=== PATIENT | male | born 1955 | race Caucasian/White ===

== ENCOUNTER 2025-02-02 08:34 | Day surgery (SDC) | payer OTHER, BC ==
[2025-01-28 14:48] VITALS: BMI 21.9
[2025-02-02] MEDS ORDERED: ACETAMINOPHEN 325 MG TABLET (FP) PO PRN (09:04)
[2025-02-02 09:08] VITALS: RESP 18
[2025-02-02] MEDS ORDERED: OFLOXACIN 0.3% OPHTHALMIC SOLUTION 5 ML BOTTLE ONE (09:11)
[2025-02-02] MEDS ORDERED: PHENYLEPHRINE 2.5% OPTHALMIC DROP 2ML BOTTLE ONE (09:12)
[2025-02-02] MEDS ORDERED: KETOROLAC TROMETHAMINE 0.5% EYE DROP 1 DROP DROPS ONE (09:12)
[2025-02-02] MEDS ORDERED: CYCLOPENTOLATE HCL 1% OPHTH SOLN 2 ML BOTTLE ONE (09:12)
[2025-02-02] MEDS ORDERED: TROPICAMIDE 1% 3 ML EYE DROPS ONE (09:12)
[2025-02-02] MEDS: PHENYLEPHRINE 2.5% OPHTH SOLN 15 ML BOTTLE OS SCH (09:20)
[2025-02-02] MEDS: OFLOXACIN 0.3% OPHTHALMIC SOLUTION 5 ML BOTTLE OS SCH (09:20)
[2025-02-02] MEDS: CYCLOPENTOLATE HCL 1% OPHTH SOLN 2 ML BOTTLE OS SCH (09:20)
[2025-02-02] MEDS: KETOROLAC TROMETHAMINE 0.5% EYE DROP 1 DROP DROPS OS SCH (09:20)
[2025-02-02] MEDS: TROPICAMIDE 1% OPHTH SOLN 15 ML BOTTLE OS SCH (09:20)
[2025-02-02] MEDS ORDERED: EPI-SHUGARCAINE (EPINEPHRINE 0.025% & LIDOCAINE-PF 0.75%) 4ML ONE (10:10)
[2025-02-02] MEDS ORDERED: BACITRACIN/POLYMYXIN OPH OINT 3.5 GM TUBE ONE (10:10)
[2025-02-02] MEDS ORDERED: TETRACAINE 0.5% OPHTH SOLN 2 ML BOTTLE ONE (10:10)
[2025-02-02] MEDS ORDERED: BETAXOLOL HCL 0.25% OPHTHALMIC 10 ML DROPSBTL ONE (10:10)
[2025-02-02] MEDS ORDERED: POVIDONE-IODINE 5% OPHTHALMIC PREP 30 ML SOLUTION ONE (10:11)
[2025-02-02] MEDS ORDERED: NEO/POLYMYX B SULF/DEXAMETH OPHTHALMIC 5ML BOTTLE ONE (10:11)
[2025-02-02] MEDS ORDERED: MIDAZOLAM HCL 2 MG/2 ML SINGLE DOSE VIAL ONE (10:18)
[2025-02-02 11:06] VITALS: TEMP 97.4
[2025-02-02 12:43] VITALS: BP 122/75; PULSE 72
== END 2025-02-02 13:05 | disposition home or self-care (01) ==
LOC: FASU 08:34
PROVIDERS: ATTEND Ophthalmology
PROC: 08RK3JZ Replacement of Left Lens with Synthetic Substitute, Percutaneous Approach (ICD-10-PCS; principal; 2025-02-02 10:32)
DX: H25.89 Other age-related cataract (principal)
CPT/HCPCS: 66984; V2632